=== PATIENT | male | born 1985 | race Caucasian/White ===

== ENCOUNTER 2022-03-09 20:09 | Emergency (ER) | payer MEDICAID ==
[2022-03-09 21:26] LABS: ESTIMATED GFR 116 mL/min (>60)
[2022-03-09] MEDS: Magnesium Oxide 400 MG Tab PO ONE (21:58)
[2022-03-09 22:18] VITALS: BP 111/72; PULSE 84
== END 2022-03-09 22:19 | disposition home or self-care (01) ==
LOC: JP.ED 20:09
DX: R25.2 Cramp and spasm (principal); E83.42 Hypomagnesemia; E86.0 Dehydration; Z79.82 Long term (current) use of aspirin; Z79.899 Other long term (current) drug therapy; Z79.84 Long term (current) use of oral hypoglycemic drugs
CPT/HCPCS: 36415; 80053; 82550; 83605; 83735; 84100; 85025; 86140; 99283; A9270

== ENCOUNTER 2023-02-05 10:42 | Emergency (ER) | payer MEDICAID ==
[2023-02-05 10:45] VITALS: BP 120/83; PULSE 83
[2023-02-05] MEDS ORDERED: Bacitracin Oint 1 GM U/D Packet TOP ONE (12:17)
== END 2023-02-05 12:54 | disposition home or self-care (01) ==
LOC: JP.ED 10:42
DX: S51.832A Puncture wound without foreign body of left forearm, initial encounter (principal); E11.9 Type 2 diabetes mellitus without complications; I10 Essential (primary) hypertension; F17.210 Nicotine dependence, cigarettes, uncomplicated; Z88.0 Allergy status to penicillin; W29.8XXA Contact with other powered hand tools and household machinery, initial encounter
CPT/HCPCS: 73090-26-LT; 73090-LT; 99283

== ENCOUNTER 2024-02-16 11:32 | Emergency (ER) | payer MEDICAID ==
[2024-02-16 11:53] VITALS: BP 135/90; PULSE 90
[2024-02-16 12:26] LABS: BASOPHILS ABSOLUTE AUTO 0.07 K/uL (0.00-0.10); BASOPHILS PERCENT AUTO 0.7 % (0.1-1.3); EOSINOPHILS ABSOLUTE AUTO 0.19 K/uL (0.00-0.40); EOSINOPHILS PERCENT AUTO 1.9 % (0.0-5.4); HEMATOCRIT 44.6 % (38.4-49.7); HEMOGLOBIN 15.8 g/dL (12.9-16.9); IMMATURE GRAN ABSOLUTE AUTO 0.05 K/uL (0.00-0.23); IMMATURE GRAN PERCENT AUTO 0.5 % (0.0-0.7); LYMPHOCYTES ABSOLUTE AUTO 3.31 K/uL (0.8-3.3); LYMPHOCYTES PERCENT AUTO 33.8 % (11.4-47.7); MEAN CORPUSCULAR HEMOGLOBIN 29.5 pg (31.6-35.5); MEAN CORPUSCULAR HGB CONC 35.4 g/dL (31.6-35.5); MEAN CORPUSCULAR VOLUME 83.2 fL (81.4-99.0); MONOCYTES ABSOLUTE AUTO 0.67 K/uL (0.20-0.90); MONOCYTES PERCENT AUTO 6.9 % (3.3-12.6); NEUTROPHILS ABSOLUTE AUTO 5.49 K/uL (1.0-7.6); NEUTROPHILS PERCENT AUTO 56.2 % (40.0-78.1); PLATELET COUNT,PLT 209 K/uL (130-375); RED BLOOD CELL COUNT 5.36 M/uL (4.14-5.76); WHITE BLOOD CELL COUNT,WBC 9.8 K/uL (3.2-11.0)
[2024-02-16] MEDS: Aspirin 81 MG Tab.Chew PO ONE (12:44)
[2024-02-16 12:49] LABS: CALCIUM 9.6 mg/dL (8.5-10.1); CREATININE 0.9 mg/dL (0.8-1.3); EST CRCL DRUG DOSING (CG) 116.2 mL/min; POTASSIUM,K 4.6 mmol/L (3.6-5.2)
[2024-02-16 12:50] LABS: ANION GAP 14.6 mmol/L (5.0-14.0)
[2024-02-16] MEDS: Magnesium Oxide 400 MG Tab PO ONE (13:12)
== END 2024-02-16 13:18 | disposition home or self-care (01) ==
LOC: JP.ED 11:32
DX: E87.1 Hypo-osmolality and hyponatremia (principal); E83.42 Hypomagnesemia; I10 Essential (primary) hypertension; E11.42 Type 2 diabetes mellitus with diabetic polyneuropathy; Z88.0 Allergy status to penicillin
CPT/HCPCS: 36415; 71046; 71046-26; 80048; 83735; 84484; 85025; 93005; 93010; 99283; 99285; A9270-GY